=== PATIENT | female | born 1980 | race Native Hawaiian/Other Pacific Islander ===

== ENCOUNTER 2019-09-19 11:36 | Emergency (ER) | payer BC ==
[~2019-09-19] VITALS: Ht 160 cm; Wt 54.4 kg
[2019-09-19 11:46] VITALS: TEMP 98.2
[2019-09-19 12:21] LABS: PLATELET COUNT 319 K/uL (152-353)
[2019-09-19 12:39] LABS: POTASSIUM 4.1 mmol/L (3.6-5.2)
[2019-09-19 16:19] VITALS: BP 115/60
== END 2019-09-19 16:21 | disposition home or self-care (01) ==
LOC: ED 11:36
PROVIDERS: Family Medicine
DX: N83.291 Other ovarian cyst, right side (principal)
CPT/HCPCS: 36415; 80053; 81000; 81025; 85027; 96374; 96375; 96376; 99283; 99284; J1885; J2175; J2405; Q9963